=== PATIENT | female | born 1965 | race Caucasian/White ===

== ENCOUNTER → 2019-08-11 09:04 | Day surgery (SDC) | payer OTHER ==
[~2019-08-11 09:04] MED LIST: Buffered Lidocaine 1% SYRIN* 1 ML/SYRINGE INTRADERM ONE; Dexamethasone IV* 4 MG/ML 1 ML (4 MG) IV SLOW PU ONE; Dexamethasone IV* 4 MG/ML 1 ML (4 MG) ONE; EPHEDrine (Pressors)* 50 MG/ML VIAL ONE; Famotidine IV* 10 MG/ML 2 ML (20 mg) IV ONE; Famotidine IV* 10 MG/ML 2 ML (20 mg) ONE; Ibuprofen TAB* 600 MG ONE; Ibuprofen TAB* 600 MG PO PRN; Ketorolac INJ* 30 MG/ML 1 ML VIAL ONE; Lactated Ringers 1000 ML Bag* 1,000 ML IV SCH; Lidocaine 2% PF * 5 ML VIAL ONE; Midazolam* 1 MG/ML 5 ML VIAL (5 MG) ONE; Ondansetron INJ* 2 MG/ML VIAL ONE; Propofol* 10 MG/ML 20 ML BTL ONE; Silver Nitrate/Potassium Nitr* 1 EA STICK ONE; fentaNYL* 50 MCG/ML 2 ML VIAL (100 MCG VIAL) ONE; oxyCODONE/Acetamin 5/325 MG* TAB PO PRN
[2019-08-11 10:25] LABS: ABS Basophils 0.1 10^3/ul (0-0.2); ABS Eosinophils 0.1 10^3/ul (0-0.6); ABS Lymphocytes 1.3 10^3/ul (1.0-4.8); ABS Monocytes 0.4 10^3/ul (0-0.8); Eosinophil % 1.1 %; Hematocrit 32 % (35-47); Hemoglobin 10.1 g/dL (12.0-16.0); Mean Corpuscular HGB Conc 32 g/dL (31-36); Mean Corpuscular Hemoglobin 27 pg (27-31); Mean Corpuscular Volume 85 fL (80-97); Mean Platelet Volume 8.3 fL (7.4-10.4); Platelet Count 358 10^3/uL (150-450); Red Cell Distribution Width 14 % (10-15); White Blood Count 5.8 10^3/uL (3.5-10.8)
--- NOTE | 2019-08-11 14:10 | OP ---
CC: [facility] OPERATIVE REPORT: DATE OF OPERATION: 08/11/19 DATE OF : 67 SURGEON: Noble Wu MD ANESTHESIOLOGIST: Dr. Retana. ANESTHESIA: General endotracheal anesthesia. PRE-OP DIAGNOSES: Irregular menses, menorrhagia, possible endometrial polyp on ultrasound. POST-OP DIAGNOSES: Irregular menses, menorrhagia, possible endometrial polyp on ultrasound. OPERATIVE PROCEDURE: Dilation, hysteroscopy, MyoSure polypectomy, and curettage. ESTIMATED BLOOD LOSS: Minimal, less than 20 cc. FINDINGS: Retroverted uterus, midline cervix. There is an arcuate shape to the uterus. At midline fundus the uterus branches off into a right and left horn. This might be due to a fundal fibroid impinging on the fundus. Both tubal ostia were visualized. The endometrium appeared atrophic. There was an endometrial polyp at the junction of the internal cervical os and the uterus on the posterior side of the uterus, which was removed. There were areas that had the appearance of an Asherman syndrome, more so in the left horn towards the fundus than the right, but there were multiple divots in the left horn towards the ostia. There are no adnexal masses palpated. There was very minimal uterine prolapse. The uterus sounded to 9. COMPLICATIONS: None. COUNTS: Sponge, lap, and needle count were correct x2. FLUIDS: Fluid deficit was 400 cc on the MyoSure. CONDITION: The patient tolerated the procedure well and was brought to recovery room, awake and in stable condition. DESCRIPTION OF PROCEDURE: The patient was brought to the operating room. When general anesthesia was found to be adequate, the patient was prepped and draped in the usual sterile fashion in the dorsal lithotomy position. Time-out was performed. Exam under anesthesia was performed. The weighted speculum was placed in the vagina. The anterior lip of the cervix was grasped with a single- tooth tenaculum. The cervix was gently and easily dilated with the graduated dilators. The uterus is retroverted. The uterus sounded to 9. The MyoSure was introduced with the above findings noted. The polyp on the posterior wall was removed in its entirety with the MyoSure LITE. Curettage was then performed. The endometrial curettings and the polyp were sent to Pathology. The single tooth tenaculum was removed from the anterior lip of the cervix. Excellent hemostasis was noted. All instruments were removed from the vagina and the patient tolerated the procedure well. Sponge, lap and needle counts were correct x2 and the patient was brought to the recovery room, awake and in stable condition. [id number]/[facility] #: [id number] MTDD
[2019-08-11 14:44] VITALS: BP 107/58
== END | disposition home or self-care (01) ==
LOC: OR 09:04
PROVIDERS: ATTEND Obstetrics & Gynecology
PROC: 0UDB8ZX Extraction of Endometrium, Via Natural or Artificial Opening Endoscopic, Diagnostic (ICD-10-PCS; principal; 2019-08-11 10:45)
DX: N92.4 Excessive bleeding in the premenopausal period (principal); N84.0 Polyp of corpus uteri; D25.9 Leiomyoma of uterus, unspecified; J45.909 Unspecified asthma, uncomplicated; D50.0 Iron deficiency anemia secondary to blood loss (chronic)
CPT/HCPCS: 36415; 81025; 85025; 86850; 86900; 86901; 88305; A9270-GY; J1100; J1885; J2250; J2405; J2704; J3010

== ENCOUNTER 2020-01-01 13:05 | Emergency (ER) | payer OTHER ==
[2020-01-01] MEDS ORDERED: Lidocaine 1% MPF ** 5 ML VIAL INJ ONE (13:19)
[2020-01-01] MEDS ORDERED: TRANEXAMIC ACID 1 GM/100ML BAG 1,000 MG/100 ML BAG IV ONE (13:20)
[2020-01-01] MEDS ORDERED: Tranexamic Acid 1,000 MG/10 ML SDV TOPICAL ONE (13:23)
--- NOTE | 2020-01-01 13:24 | ED ---
Adult Trauma - HPI Summary HPI Summary: 54 y/o female presented to [facility] after cutting off the tip of her left thumb while cutting wood. Pt has been holding pressure on the wound and keeping it above her heart for 3 hours but it is still bleeding. Pt is not on blood thinners and is UTD on her tetanus shot. Hx of iron deficiency anemia and DNC surgery. Pt notes allergy to augmentin and occasional alcohol use. Medications reviewed. Allergies noted. Home Medications Medication Instructions Recorded Confirmed Type ALPRAZolam [Xanax] 1 mg PO ONCE PRN 12/31/16 08/11/19 History Loratadine [Claritin 10 MG CAP] 10 mg PO DAILY PRN 12/31/16 08/11/19 History PARoxetine HCL TAB* [Paxil TAB*] 20 mg PO QAM 12/31/16 08/11/19 History Albuterol HFA INHALER* [Ventolin 2 puff INH Q4H PRN 01/02/17 08/05/19 History HFA Inhaler*] Iron,Carbonyl/Ascorbic Acid [Iron 1 each PO QAM 08/05/19 08/11/19 History 100-Vitamin C Tablet] Naproxen Sodium [Aleve] 220 mg PO ONCE PRN 08/05/19 08/05/19 History Norethindrone 2 tab PO QAM 08/05/19 08/05/19 History - History of Current Complaint Chief Complaint: EDLacSutureRecheck Stated Complaint: INJURY TO LEFT HAND Time Seen by Provider: 01/01/20 13:11 Hx Obtained From: Patient Mechanism of Injury: Penetrating Trauma - cut off tip of thumb Onset/Duration: Started Hours Ago, Still Present Onset of Pain: Hours Current Severity: Moderate Pain Intensity: 6 Pain Scale Used: 0-10 Numeric Location: Extremities - left thumb Aggravating Factor(s): Nothing Alleviating Factor(s): Nothing Associated Signs & Symptoms: Positive: Negative - Allergy/Home Medications Allergies/Adverse Reactions: Allergies Allergy/AdvReac Type Severity Reaction Status Date / Time amoxicillin [From Augmentin] Allergy Blisters Verified 01/01/20 13:10 clavulanic acid Allergy Blisters Verified 01/01/20 13:10 [From Augmentin] Home Medications: Home Medications ALPRAZolam [Xanax] 1 mg PO ONCE PRN 12/31/16 [History Confirmed 08/11/19] Loratadine [Claritin 10 MG CAP] 10 mg PO DAILY PRN 12/31/16 [History Confirmed 08/11/19] PARoxetine HCL TAB* [Paxil TAB*] 20 mg PO QAM 12/31/16 [History Confirmed ] Albuterol HFA INHALER* [Ventolin HFA Inhaler*] 2 puff INH Q4H PRN 01/02/17 [ History Confirmed 08/05/19] Iron,Carbonyl/Ascorbic Acid [Iron 100-Vitamin C Tablet] 1 each PO QAM 08/05/19 [ History Confirmed 08/11/19] Naproxen Sodium [Aleve] 220 mg PO ONCE PRN 08/05/19 [History Confirmed 08/05/19] Norethindrone 2 tab PO QAM 08/05/19 [History Confirmed 08/05/19] PMH/Surg Hx/FS Hx/Imm Hx Endocrine/Hematology History: Reports: Hx Anemia - CURRENTLY Cardiovascular History: Denies: Other Cardiovascular Problems/Disorders Respiratory History: Reports: Hx Asthma - HX OF PRN INHALER-REPORTS NOT USED IN THE PAST YEAR Denies: Other Respiratory Problems/Disorders GI History: Denies: Other GI Disorders History: Reports: Hx Kidney Infection - X 1, Other Problems/ Disorders - HX OF UTI'S IN THE Musculoskeletal History: Reports: Hx Tendonitis - HX OF FEET, ANKLE, ELBOW- REPORTS NOTHING CURRENTLY Denies: Hx Rheumatoid Arthritis, Hx Osteoporosis, Other Musculoskeletal History Sensory History: Reports: Hx Contacts or Glasses - READING GLASSES Denies: Hx Hearing Aid Opthamlomology History: Reports: Hx Contacts or Glasses - READING GLASSES Neurological History: Denies: Other Neuro Impairments/Disorders Psychiatric History: Reports: Hx Anxiety - ON MEDICATION FOR, Hx Depression - ON MEDICATION FOR - Cancer History Hx Chemotherapy: No Hx Radiation Therapy: No - Surgical History Surgery Procedure, Year, and Place: WISDOM TEETH EXTRACTED-1983. DENTAL SURGERY -2000 Hx Anesthesia Reactions: No Infectious Disease History: No Infectious Disease History: Denies: Traveled Outside the [place] in Last 30 Days - Family History Known Family History: Positive: Diabetes - mom Type II resolved Negative: Hypertension - Social History Alcohol Use: Weekly Alcohol Amount: 1 GLASS A COUPLE TIMES A WEEK Substance Use Type: Reports: Excessive Caffeine Substance Use Comment - Amount & Last Used: 3 CUPS OF TEA DAILY Smoking Status (MU): Never Smoked Tobacco Have You Smoked in the Last Year: No Review of Systems Negative: Fever - vitals show temp at 98.3F Positive: Other - evulsion of left thumb All Other Systems Reviewed And Are Negative: Yes Physical Exam - Summary Physical Exam Summary: Constitutional: Well-developed, Well-nourished, Alert. (-) Distressed Skin: Warm, Dry, Small evulsion of left thumb distal to thumbnail actively bleeding at a slow rate HENT: Normocephalic; Atraumatic Eyes: Conjunctiva normal Neck: Musculoskeletal ROM normal neck. (-) JVD, (-) Stridor, (-) Tracheal deviation Cardio: Rhythm regular, rate normal, Heart sounds normal; Intact distal pulses; Radial pulses are 2+ and symmetric. (-) Murmur Pulmonary/Chest wall: Effort normal. (-) Respiratory distress, (-) Wheezes, (-) Rales Abd: Soft, (-) tenderness, (-) Distension, (-) Guarding, (-) Rebound Musculoskeletal: (-) Edema Lymph: (-) Cervical adenopathy Neuro: Alert, Oriented x3 Psych: Mood and affect Normal Triage Information Reviewed: Yes Vital Signs On Initial Exam: Initial Vitals Temp Pulse Resp BP Pulse Ox 98.3 F 75 19 124/83 98 01/01/20 13:09 01/01/20 13:09 01/01/20 13:09 01/01/20 13:09 01/01/20 13:09 Vital Signs Reviewed: Yes Procedures - Sedation Patient Received Moderate/Deep Sedation with Procedure: No - Laceration/Wound Repair 1 Location: upper extremity - left thumb, digital block Anesthesia: Local, 1.0% - lidocaine, 60cc Betadine Prep?: No Laceration/Wound Explored: clean Number of Sutures: 0 Sterile Dressing Applied?: Yes - Surgicel dressing coated in TXA Diagnostics - Vital Signs Vital Signs Temp Pulse Resp BP Pulse Ox 01/01/20 13:09 98.3 F 75 19 124/83 98 - Laboratory Lab Statement: Any lab studies that have been ordered have been reviewed, and results considered in the medical decision making process. Re-Evaluation - Re-Evaluation First Eval Re-Evaluation Time: 14:10 Comment: Wound is still bleeding. Will try silver nitrate. Adult Trauma Course/Dx - Course Assessment/Plan: Patient is here after slicing off the tip of her left thumb. Patient had a wound that was continuing to bleed. Patient's wound is suturable. Patient had Surgicel soaked in takes a applied to her wound with a pressure dressing which did not stop the bleeding. Patient had subsequent cauterization with silver nitrate which stopped bleeding. Patient is up-to- date on tetanus. - Diagnoses Provider Diagnoses: Laceration of left thumb Discharge ED - Sign-Out/Discharge Documenting (check all that apply): Patient Departure - dc - Discharge Plan Condition: Stable Disposition: HOME Patient Education Materials: Laceration (ED) Referrals: Mitra Parkinson MD [Primary Care Provider] - Additional Instructions: PLEASE RETURN TO EMERGENCY DEPARTMENT FOR ANY NEW OR WORSENING SYMPTOMS. Please take off the pressure dressing in 1-2 hours. If your finger begins to hurt before that, you may take the dressing off early. Look for signs of infection including redness, pus coming out of your wound, or worsening swelling. Be gentle with your finger for a couple of days. If it begins to bleed again, apply pressure. - Billing Disposition and Condition Condition: STABLE Disposition: Home - Attestation Statements Document Initiated by Claudio: Yes Documenting Scribe: Rick Zapata Provider For Whom Claudio is Documenting (Include Credential): Michael Valenzuela MD Scribe Attestation: Rick Francois, scribed for Michael Valenzuela MD on 01/01/20 at 1908. Scribe Documentation Reviewed: Yes Provider Attestation: The documentation as recorded by the Rick escobar accurately reflects the service I personally performed and the decisions made by , Michael Valenzuela MD Status of Scribe Document: Viewed
[2020-01-01] MEDS ORDERED: Silver Nitrate/Potassium Nitr* 1 PAK (1 PAK PER PATIENT) TOPICAL ONE (14:11)
[2020-01-01 14:49] VITALS: BP 102/62
== END 2020-01-01 14:48 | disposition home or self-care (01) ==
LOC: ED 13:05
DX: S61.012A Laceration without foreign body of left thumb without damage to nail, initial encounter (principal); W45.8XXA Other foreign body or object entering through skin, initial encounter; Y93.9 Activity, unspecified; Y92.9 Unspecified place or not applicable; D50.9 Iron deficiency anemia, unspecified; Z79.899 Other long term (current) drug therapy; Z88.0 Allergy status to penicillin; F41.9 Anxiety disorder, unspecified; F32.9 Major depressive disorder, single episode, unspecified
CPT/HCPCS: 96372; 99282; A9270-GY